=== PATIENT | male | born 1960 | race African-American/Black ===

== ENCOUNTER 2021-11-02 00:09 | Day surgery (SDC) | payer OTHER, SELFPAY ==
[2021-10-14 14:56] VITALS: BMI 28.4
--- NOTE | 2021-10-30 15:30 | PM.HPGS ---
History of Present Illness History of Present Illness Consent: Risks, benefits, and alternatives have been discussed and questions answered. Patient agrees to proceed with procedure. Chief complaint: hx of colon polyps, neoplasm screening Narrative: Yvan Mccoy is a 61 year old male Referred for colon cancer screening. He has had adenomatous polyps in the past. Review of Systems Review of Systems: All systems reviewed & are unremarkable except as noted in HPI and below PMFSH Social History Social History Smoking packs per day: 0.5 Smoking cigarettes per day: 10.0 Years smoked: 40 Smoking pack-years: 20.00 Smoking status: Current every day smoker Tobacco type: cigarettes Alcohol intake: current Alcohol use details: on rare occasions Substance use type: does not use Living arrangements: other Additional living arrangements comments: With sp Meds Home Medications and Allergies Home Medications Medication Instructions Recorded Confirmed Type rosuvastatin 20 mg tablet 20 mg PO DAILY #90 tabs 09/21/21 11/02/21 Rx cetirizine 10 mg tablet (Zyrtec) 10 mg PO DAILY #90 tabs 09/22/21 11/02/21 Rx Allergies Allergy/AdvReac Type Severity Reaction Status Date / Time No Known Allergies Allergy Verified 11/02/21 07:38 Exam Const: General: alert Orientation/consciousness: patient oriented x3 Resp: Auscultation: clear to auscultation bilaterally Cardio: Rhythm: regular rhythm GI: GI Palp: Yes Soft to palpation and No Tenderness to palpation present (GI) Neuro: General: patient oriented x3 Assessment and Plan Assessment and plan (1) Colon cancer screening: Code(s): Z12.11 - Encounter for screening for malignant neoplasm of colon Status: Acute
[2021-11-02 07:41] VITALS: BP 110/81; PULSE 87; RESP 18; TEMP 36.3; O2SAT 100
--- NOTE | 2021-11-02 07:46 | WPDANESEPPF ---
Anes - Initial Pre Proc Eval Procedure: Operation Date: 11/02/21 08:30 Proposed Procedures p Screening Colonoscopy - Antonio Caceres MD Date/Time: 11/02/21 07:46 Surgeon: Antonio Caceres MD Pre Op Diagnosis: hx of colon polyps, neoplasm screening Patient Data Age: 61 Gender: M Height: 1.65 m Weight: 76.1 kg Last Vital Signs Temp 36.3 C L 11/02/21 07:41 Pulse 87 11/02/21 07:41 Resp 18 11/02/21 07:41 BP 110/81 11/02/21 07:41 Pulse Ox 100 11/02/21 07:41 O2 Del Method Room Air 11/02/21 07:41 Allergies Allergy/AdvReac Type Severity Reaction Status Date / Time No Known Allergies Allergy Verified 11/02/21 07:38 Home Medications Medication Instructions Recorded Confirmed Type rosuvastatin 20 mg tablet 20 mg PO DAILY #90 tabs 09/21/21 11/02/21 Rx cetirizine 10 mg tablet (Zyrtec) 10 mg PO DAILY #90 tabs 09/22/21 11/02/21 Rx Patient hx anesthesia problems: none Family hx anesthesia problems: none Results Review: All pre-operative results and documents have been reviewed as part of the pre-operative evaluation. [facility] Social History Social History Smoking packs per day: 0.5 Smoking cigarettes per day: 10.0 Years smoked: 40 Smoking pack-years: 20.00 Smoking status: Current every day smoker Tobacco type: cigarettes Alcohol intake: current Alcohol use details: on rare occasions Substance use type: does not use Living arrangements: other Additional living arrangements comments: With sp Anes - Eval Final PreProcedure Day of Procedure 11/02/21 07:46 Patient weight: overweight Heart: regular rate and rhythm Lungs: clear to auscultation Airway: Mallampati scale class II Neurological: alert and oriented Last oral intake: >/= 8 hours ASA classification: III Emergent: no Anesthetic plan: proceed Anesthesia type and monitoring: general GIVS and standard monitoring Results Review: All pre-operative results and documents have been reviewed as part of the pre-operative evaluation. Informed Consent: The patient's anesthetic plan and its attendant risks and benefits were discussed with the patient/family/POA. Questions were solicited and answers provided to the satisfaction of the patient/family/POA.
[2021-11-02] MEDS: LACTATED RINGERS 1,000 ML 150 ML IV CONT (07:48)
[2021-11-02 08:41] VITALS: BP 96/61; PULSE 76; RESP 22; O2SAT 97
[2021-11-02 08:51] VITALS: BP 107/59; PULSE 70; RESP 18; O2SAT 100
[2021-11-02 09:01] VITALS: BP 110/69; PULSE 74; RESP 20; O2SAT 100
== END 2021-11-02 09:14 | disposition home or self-care (01) ==
PROVIDERS: PCP Internal Medicine; Visit Provider Internal Medicine Gastroenterology
PROC: 0DJD8ZZ Inspection of Lower Intestinal Tract, Via Natural or Artificial Opening Endoscopic (ICD-10-PCS; CPT 45378; principal; 2021-11-02 08:30)
DX: Z12.11 Encounter for screening for malignant neoplasm of colon (principal); Z86.010 Personal history of colon polyps; F17.210 Nicotine dependence, cigarettes, uncomplicated
CPT/HCPCS: 45378; J2704; J7120

== ENCOUNTER 2022-04-18 11:34 | Emergency (ER) | payer OTHER, SELFPAY ==
[2022-04-18 11:40] VITALS: BP 127/73; PULSE 100; RESP 16; TEMP 36.2; O2SAT 100
--- NOTE | 2022-04-18 11:44 | ECG_ITS ---
Measurements Intervals [place] Rate: 98 P: 70 TN: 134 QRS: 52 QRSD: 73 T: 61 QT: 320 QTc: 410 Interpretive Statements SINUS RHYTHM POSSIBLE LEFT ATRIAL ENLARGEMENT CANNOT RULE OUT SEPTAL INFARCT, AGE INDETERMINATE ABNORMAL ECG NO PREVIOUS ECG AVAILABLE FOR COMPARISON Electronically Signed On 04-18-2022 13:21:20 CDT by David Frankel D.O.
--- NOTE | 2022-04-18 12:44 | ED.GENADULT ---
HPI - General Adult General Chief complaint: Skin/Abscess/Foreign Body Stated complaint: painful rash on chest History of Present Illness HPI narrative: 61-year-old male presenting to the emergency department for evaluation of onset of left-sided chest pain and left-sided chest rash. Patient noticed that he was having some chest pain across his left chest Tuesday after coming from the gym and patient suspected it was a muscular injury. Patient noticed the rash last night when he was in the shower. noticed that the rash had spread to his back today. Patient presented to the emergency department for evaluation. Patient denies any associated shortness of breath or fever. Patient states he does not have a prior history of receiving the shingles vaccine. Related Data Allergies Allergy/AdvReac Type Severity Reaction Status Date / Time No Known Allergies Allergy Verified 04/18/22 11:39 Review of Systems Review of Systems: All systems reviewed & are unremarkable except as noted in HPI and below PMFSH Social History Social History Smoking packs per day: 0.5 Smoking cigarettes per day: 10.0 Years smoked: 40 Smoking pack-years: 20.00 Smoking status: Current every day smoker Tobacco type: cigarettes Alcohol intake: current Alcohol use details: on rare occasions Substance use type: does not use Living arrangements: other Additional living arrangements comments: With sp Exam Narrative: APPEARANCE: Well appearing, no pain, no distress, well-nourished. HEAD: normocephalic, atraumatic. EYES: PERRLA/EOMI, conjunctivae clear. NOSE: Normal no drainage EARS:TMS clear with good light reflex. THROAT: Pharynx clear, no exudate. NECK: Supple. No adenopathy, no masses. RESPIRATORY: Airway patent, respirations nonlabored. Clear to auscultation bilaterally, no rales, rhonchi, wheezing. CARDIOVASCULAR: Regular rate and rhythm without murmurs rubs or gallops. ABDOMINAL: Soft, nontender, nondistended, normal bowel sounds MUSCULOSKELETAL: Moves all extremities. Strength/ROM intact, No edema, No calf tenderness. NEURO: Alert. Cranial nerves II through XII intact. SKIN: Vesicular rash consistent with shingles across left chest and to left Course Course Emergency Course: 59-year-old male with a vesicular rash consistent with shingles. Patient had an EKG which shows normal sinus rhythm with no evidence of acute STEMI. Patient was treated with IM Toradol, p.o. valacyclovir and p.o. [place]. Patient will be discharged home with additional medications for pain control and valacyclovir. Patient was also encouraged of close follow-up with his primary care physician. Patient and family were updated on the results of the exam, treatment plan and on reasons to return to the emergency department. Vital Signs Vital signs: Vital Signs Temperature 97.1 F L 04/18/22 11:40 Pulse Rate 100 04/18/22 11:40 Respiratory Rate 16 04/18/22 11:40 Blood Pressure 127/73 04/18/22 11:40 Pulse Oximetry 100 04/18/22 11:40 Oxygen Delivery Room Air 04/18/22 11:40 Temperature 97.1 F L 04/18/22 11:40 Pulse Rate 100 04/18/22 11:40 Respiratory Rate 16 04/18/22 11:40 Blood Pressure 127/73 04/18/22 11:40 Pulse Oximetry 100 04/18/22 11:40 Oxygen Delivery Room Air 04/18/22 11:40 Medical Decision Making Vital Signs Vital Signs: Vital Signs Temperature 97.1 F L 04/18/22 11:40 Pulse Rate 100 04/18/22 11:40 Respiratory Rate 16 04/18/22 11:40 Blood Pressure 127/73 04/18/22 11:40 Pulse Oximetry 100 04/18/22 11:40 Oxygen Delivery Room Air 04/18/22 11:40 Temperature 97.1 F L 04/18/22 11:40 Pulse Rate 100 04/18/22 11:40 Respiratory Rate 16 04/18/22 11:40 Blood Pressure 127/73 04/18/22 11:40 Pulse Oximetry 100 04/18/22 11:40 Oxygen Delivery Room Air 04/18/22 11:40 Discharge Plan Discharge Clinical Impressio
[2022-04-18] MEDS: HYDROcodone/acetaminophen (*CRX) 10-325 MG TABLET 1 TAB PO (12:45)
[2022-04-18] MEDS: KETOROLAC 30 MG/ML VIAL (*BKC) IM (12:45)
[2022-04-18] MEDS: valACYclovir HCL 500 MG TABLET 1000 MG PO (12:59)
== END 2022-04-18 13:20 | disposition home or self-care (01) ==
PROVIDERS: Emergency Provider Emergency Medicine; PCP Internal Medicine
DX: B02.9 Zoster without complications (principal); F17.210 Nicotine dependence, cigarettes, uncomplicated
CPT/HCPCS: 93005; 96372; 99283; A9270; J1885

== ENCOUNTER 2024-11-22 08:34 | Emergency (ER) | payer MEDICARE, OTHER, SELFPAY ==
--- NOTE | ~2024-11-22 | XR_ITS ---
Examination: XR foot RT min 3V Clinical History: 1st metatarsal/great toe pain, dropped 45lb weight on foot Comparison: None Technique: 4 views right foot Findings/impression: 1. Comminuted fracture first toe, distal phalanx. 2. No other acute abnormality right foot. 3. Mild joint space narrowing first MTP joint with mild marginal osteophytes. Reviewed, dictated and finalized at location R.
[2024-11-22 08:49] VITALS: BP 96/56; PULSE 85; RESP 16; TEMP 36.1; O2SAT 100
--- NOTE | 2024-11-22 08:56 | ED.LOWEXIN ---
HPI - Extremity Injury (Lower) General Chief Complaint: Extremity Injury, Lower Stated Complaint: R Toe Time Seen by Provider: 11/22/24 08:56 Source: patient Mode of arrival: ambulatory Limitations: no limitations History of Present Illness HPI Narrative: 64-year-old male presents with pain to right foot and big toe. Patient states yesterday while at gym he dropped a 45 Lb weight on his right foot. patient reports mild aching to right foot. States pain really not that bad . Ambulatory with steady gait. All systems reviewed and negative except as noted above. Related Data Home Medications ?Medication ?Instructions ?Recorded ?Confirmed ?Last Taken ?Type multivitamin 1 tablet PO DAILY 09/24/22 07/06/24 Unknown History omega 8-gez-vzg-fish oil 1,000 mg 1 cap PO DAILY 11/22/24 11/22/24 Unknown History (120 mg-180 mg) capsule (Fish Oil) simvastatin 10 mg tablet mg 11/22/24 Unknown History vit D3 50 mcg-vitamin K1 500 cap PO 11/22/24 Unknown History mcg-MK4 1,500 mcg-MK7 180 mcg capsule Allergies Allergy/AdvReac Type Severity Reaction Status Date / Time rosuvastatin (From Crestor) AdvReac Intermediate Joint Pain Verified 11/22/24 08:49 simvastatin AdvReac Intermediate Muscle Pain Verified 11/22/24 08:49 [facility] Past Medical History Medical History Changing skin lesion COVID-19 History of colon polyps Social History Social History (Updated 11/09/24 @ 10:30 by Paola Smith MA) Smoking packs per day: 0.5 Smoking cigarettes per day: 10.0 Years smoked: 40 Smoking pack-years: 20.00 Smoking status: Current every day smoker Tobacco type: cigarettes Alcohol intake: current Alcohol use details: rarely Substance use: never Substance use type: does not use Do You Feel Safe in your Home?: Yes Lack of Food: Never True Current Housing: Decline to Answer Concerned About Future Housing: Decline to Answer Difficulty Paying Gas/Electric Bills: Decline to Answer Difficulty Paying for Meds: Decline to Answer Currently Unemployed: Decline to Answer Education: Decline to Answer Difficulty w/ Childcare or Family Care: Decline to Answer Living arrangements: other Additional living arrangements comments: With sp Comments At time of signature, agree with nursing past medical, surgical, social and family history. There is no relevant family history pertinent to the presenting complaint. Exam Narrative: GENERAL: This is a well-nourished, well-developed patient, in no apparent distress. HEAD: normocephalic, atraumatic. EYES: PERRL. Sclera clear/white. Vision is grossly intact. EARS: External ears normal NOSE: External nose normal NECK: Neck supple, non-tender without lymphadenopathy, masses or thyromegaly. CARDIOVASCULAR: Regular rate and rhythm without murmurs, gallops, or rubs. RESPIRATORY: Clear to auscultation. Breath sounds equal bilaterally. No wheezes, rales, or rhonchi. SKIN: warm, Dry, intact with no suspicious lesions or rash, good texture and turgor. NEURO: awake, alert, and oriented to person, place and time. There were no obvious focal neurologic abnormalities. EXTREMITIES: Bruising noted to right great toe with swelling to 1st metatarsal and great toe. No deformity noted. Skin is intact. No significant tenderness on palpation. Course Course Level of Care: Express Care Visit Vital Signs Vital signs: Vital Signs Temperature 36.1 C L 11/22/24 08:49 Pulse Rate 85 11/22/24 08:49 Respiratory Rate 16 11/22/24 08:49 Blood Pressure 96/56 L 11/22/24 08:49 Pulse Oximetry 100 11/22/24 08:49 Oxygen Delivery Room Air 11/22/24 08:49 Temperature 36.1 C L 11/22/24 08:49 Pulse Rate 85 11/22/24 08:49 Respiratory Rate 16 11/22/24 08:49 Blood Pressure 96/56 L 11/22/24 08:49 Pulse Oximetry 100 11/22/24 08:49 Oxygen Delivery Room Air 11/22/24 08:49 Reviewed MDM - Extremity Injury (Lower) MDM Narrative Medical decision making narrative: x-ray of right foot shows fracture to distal aspect right great toe. Discussed x-ray results with patient. Referred to shipping and receiving specialist for fracture care. Patient placed in postop shoe. Differential Diagnosis Differential diagnosis: Likely fracture of toe and other ( Toe contusion, foot fracture) Imaging Data My impression: Agree with radiologist Radiologist's impression: Examination: XR foot RT min 3V Clinical History: 1st metatarsal/great toe pain, dropped 45lb weight on foot Comparison: None Technique: 4 views right foot Findings/impression: 1. Comminuted fracture first toe, distal phalanx. 2. No other acute abnormality right foot. 3. Mild joint space narrowing first MTP joint with mild marginal osteophytes. Discharge Plan Discharge Clinical Impression: Closed fracture of right great toe Qualifiers: Encounter type: initial encounter Phalanx: distal Patient Disposition: Home Condition: Stable Instructions: Toe Fracture (ED) Additional Instructions: the x-ray of your right great toe showed a fracture. Wear postop shoe when ambulatory for comfort. Take ibuprofen or Tylenol every 6-8 hours as needed for pain. Elevate when at rest. Apply ice as needed for pain. Follow-up with shipping and receiving specialist to monitor fracture healing. Patient Language: Montenegrin Prescriptions: No Action simvastatin 10 mg tablet omega 9-gee-gyn-fish oil [Fish Oil] 1,000 (120-180) mg capsule 1 cap PO DAILY multivitamin Tablet 1 tablet PO DAILY azelastine 137 mcg (0.1 %) spray,non-aerosol 137 mcg intranasal BID Qty: 90 2RF Rx Instructions: administer into each nostril cetirizine 10 mg tablet See Rx Instructions .ROUTE .COMPLEX Qty: 90 2RF Dose Instruction: TAKE 1 TABLET BY MOUTH EVERY DAY Rx Instructions: TAKE 1 TABLET BY MOUTH EVERY DAY Follow-up/Referrals: Wilmer Thomas MD [Primary Care Provider, Internal Medicine] Kentrell Lenz MD [Physician, Orthopedics] Referral Note: follow up with shipping and receiving specialist for fracture care Time of Disposition: 09:18
== END 2024-11-22 09:24 | disposition home or self-care (01) ==
PROVIDERS: Emergency Provider Nurse Practitioner Family; PCP Emergency Medicine
DX: S92.421A Displaced fracture of distal phalanx of right great toe, initial encounter for closed fracture (principal); F17.210 Nicotine dependence, cigarettes, uncomplicated; Z79.899 Other long term (current) drug therapy; W22.8XXA Striking against or struck by other objects, initial encounter
CPT/HCPCS: 73630; 99214; G0463